=== PATIENT | female | born 1995 | race Caucasian/White ===

== ENCOUNTER 2022-01-29 18:50 | Emergency (ER) | payer SELFPAY ==
[~2022-01-29] VITALS: Ht 157.5 cm; Wt 64.0 kg
[2022-01-29 19:00] VITALS: BP 127/77
[2022-01-29] MEDS ORDERED: BIRTH CONTROL (19:04)
== END 2022-01-30 01:54 | disposition left against medical advice (07) ==
LOC: ER 18:50
DX: Z53.21 Procedure and treatment not carried out due to patient leaving prior to being seen by health care provider (principal)